=== PATIENT | male | born 1975 | race Caucasian/White ===

== ENCOUNTER 2018-09-21 10:32 | Emergency (ER) | payer BC ==
[2018-09-21] MEDS: LIDOCAINE 1% (MPF) 5 ML VIAL INJ (10:57)
[2018-09-21] MEDS: DIPHTH/TET/ACEL PERTUSS (ADULT) 0.5 ML VIAL IM* (10:57)
[2018-09-21] MEDS: BACITRACIN 0.5%/ZINC 28.35 GM OINT TOP (11:54)
== END 2018-09-21 12:24 | disposition home or self-care (01) ==
LOC: FTE 12:24
DX: S61.411A Laceration without foreign body of right hand, initial encounter (principal); W25.XXXA Contact with sharp glass, initial encounter; Y92.9 Unspecified place or not applicable; Z23 Encounter for immunization
CPT/HCPCS: 12001; 73130-RT; 90471; 90715; 99283-25